=== PATIENT | female | born 1960 | race African-American/Black ===

== ENCOUNTER 2017-04-07 08:51 | Emergency (ER) | payer OTHER ==
[2017-04-07 09:35] VITALS: TEMP 98.7; BMI 33.9
[2017-04-07] MEDS ORDERED: ONDANSETRON 4 MG/2 ML VIAL IVPUSH ONE (10:11)
[2017-04-07] MEDS ORDERED: SODIUM CHLORIDE 0.9% 1000 ML INFUS.BAG IV ONE (10:11)
[2017-04-07] MEDS ORDERED: ONDANSETRON 4 MG/2 ML VIAL ONE (10:24)
[2017-04-07 10:50] LABS: BASO % 1.2 % (0-2.0); EOS % 3.1 % (0-4.5); HEMATOCRIT 45.5 % (32.4-45.2); HEMOGLOBIN 14.8 GM/dL (10.7-15.3); LYMPH % 26.8 % (8-40); MCHC 32.5 g/dl (32.0-36.0); MEAN CELL VOLUME 76.9 fl (80-96); MEAN PLT VOLUME 9.3 fl (7.5-11.1); NEUT % 61.9 % (42.8-82.8); PLATELET COUNT 205 K/MM3 (134-434); RBC 5.91 M/mm3 (3.60-5.2); RDW 15.3 % (11.6-15.6); WHITE BLOOD COUNT 4.7 K/mm3 (4.0-10.0)
--- NOTE | 2017-04-07 10:51 | PDOC ---
Attending Attestation - Resident Resident Name: Addison Hutchison - ED Attending Attestation I have performed the following: I have examined & evaluated the patient, The case was reviewed & discussed with the resident, I agree w/resident's findings & plan, Exceptions are as noted - HPI HPI: 04/07/17 10:30 A portion of this note was documented by scribe services under my direction. I have reviewed the details of the note, within reason, and agree with the documentation with the following case summary and management plan written by me. Patient treated in the ED. Nursing notes are reviewed and incorporated into the medical decision-making. Vital signs reviewed. Peripheral IV access obtained by the nurse, laboratory studies are drawn and sent, reviewed and interpreted by myself. Vital Signs Temp Pulse Resp BP Pulse Ox 98.7 F 83 20 124/105 98 04/07/17 09:22 04/07/17 09:22 04/07/17 09:22 04/07/17 09:22 04/07/17 09:22 57-year-old female with past medical history of hypertension presents with chest pain. The patient reported waking up in her usual state of health. Stated that approximately 6 the morning, the patient was waiting for the bus when she felt the sudden onset of chest and left upper quadrant discomfort. The patient states that the pain would wax and wane and not told exertional. States she may have been short of breath. Reported some nausea but denies vomiting. No radiation. Denies recent illnesses. Patient had taken some Mylanta but didn't think it brought relief. - Physicial Exam PE: 04/07/17 10:51 GENERAL: Awake, alert, and fully oriented, in no acute distress. HEAD: No signs of trauma EYES: PERRLA, EOMI, sclera anicteric, conjunctiva clear ENT: Auricles normal inspection, hearing grossly normal, nares patent, NECK: Normal ROM, supple LUNGS: Breath sounds equal, clear to auscultation bilaterally. No wheezes, and no crackles HEART: Regular rate and rhythm, normal S1 and S2, no murmurs, rubs or gallops ABDOMEN: TTP LUQ. Soft. No guarding, no rebound. No masses EXTREMITIES: Normal range of motion, no edema. No clubbing or cyanosis. No cords, erythema, or tenderness NEUROLOGICAL: Cranial nerves II through XII grossly intact. Normal speech, normal gait SKIN: Warm, Dry, normal turgor, no rashes or lesions noted. - Medical Decision Making 04/07/17 10:51 Patient does have some reproducible component including left upper quadrant discomfort. I suspect this is likely gastritis or atypical chest pain. However, given age and history of hypertension, we'll obtain to troponins. EKG is unremarkable. If workup is unrevealing, and patient reports feeling better, we' ll discharge with PMD follow-up and cardiology follow-up. 04/07/17 12:05 CBC, BMP 04/07/17 10:30 04/07/17 10:30 CMP Sodium 141 mmol/L (136-145) 04/07/17 10:30 Potassium 3.8 mmol/L (3.5-5.1) 04/07/17 10:30 Chloride 109 mmol/L (98-107) H 04/07/17 10:30 Carbon Dioxide 25 mmol/L (21-32) 04/07/17 10:30 Anion Gap 7 (8-16) L 04/07/17 10:30 BUN 10 mg/dL (7-18) 04/07/17 10:30 Creatinine 0.7 mg/dL (0.55-1.02) 04/07/17 10:30 Creat Clearance w eGFR > 60 (>60) 04/07/17 10:30 Random Glucose 98 mg/dL (74-106) 04/07/17 10:30 Calcium 8.4 mg/dL (8.5-10.1) L 04/07/17 10:30 Total Bilirubin 0.3 mg/dL (0.2-1.0) 04/07/17 10:30 AST 21 U/L (15-37) 04/07/17 10:30 ALT 37 U/L (12-78) 04/07/17 10:30 Alkaline Phosphatase 109 U/L (45-117) 04/07/17 10:30 Creatine Kinase 171 IU/L (26-192) 04/07/17 10:30 Creatine Kinase Index 0.9 % (0.0-5.0) 04/07/17 10:30 CK-MB (CK-2) 1.6 ng/mL (0.5-3.6) 04/07/17 10:30 Troponin I < 0.02 ng/ml (0.00-0.05) 04/07/17 10:30 Total Protein 7.7 g/dl (6.4-8.2) 04/07/17 10:30 Albumin 3.6 g/dl (3.4-5.0) 04/07/17 10:30 Lipase 143 U/L (73-393) 04/07/17 10:30 Initial trop is negative. Will await for second trop. If negative, patient can follow up as an outpatient. Case discussed with DR. Addison Trejo, who is seeing the patient and will see the patient as an outpatient. 04/07/17 14:37 2nd trop negative. Chest xray reviewed. No acute findings. Heart Score/ECG Review - History History: Moderately suspicious - Electrocardiogram EKG: Normal - Age Age: 45-65 - Risk Factors Risk Factors Heart Score: Yes Hx Hypertension Based on the list above the patient has:: 1-2 risk factors - Troponin Troponin: </= normal limit - Score Heart Score - Total: 3 #1 04/07/17 10:52 NSR 72, no std/hilton, normal axis, normal intervals, QTC 453 msec
--- NOTE | 2017-04-07 10:59 | PDOC ---
History of Present Illness - General Chief Complaint: Chest Pain Stated Complaint: CHEST PAIN Time Seen by Provider: 04/07/17 09:50 History Source: Patient Exam Limitations: No Limitations - History of Present Illness Initial Comments: 04/07/17 11:08 The patient is a 57F with a PMH of HTN who presents with chest pain. The patient starts that she experienced a retrosternal CP, radiating to her L inferior rib area, which she describes as a burning/pressure pain. The pain started while she was doing her normal walk to her bus. The pain is associated with a cough. She is also complaining of congestion. She states that as she went to work, she felt a bout of nauseousness but no vomiting. She says that after the nauseousness, she felt worried and went to her work's clinic. She was given mylanta and aspirin and says she is not sure if she felt better or not after that. She denies SOB, fever, chills, vomiting, numbness, tingling, weakness, rash, dysuria, hematuria. Past History - Past Medical History Allergies/Adverse Reactions: Allergies Allergy/AdvReac Type Severity Reaction Status Date / Time No Known Drug Allergies Allergy Verified 04/07/17 09:22 Home Medications: Ambulatory Orders Unobtainable [Unobtainable] 04/07/17 COPD: No HTN: Yes - Suicide/Smoking/Psychosocial Hx Smoking History: Former smoker Have you smoked in the past 12 months: No Information on smoking cessation initiated: No Hx Alcohol Use: No Drug/Substance Use Hx: No Substance Use Type: None Hx Substance Use Treatment: No Review of Systems - Review of Systems Able to Perform ROS?: Yes Comments:: 04/07/17 11:24 GENERAL/CONSTITUTIONAL: No fever or chills. No weakness. HEAD, EYES, EARS, NOSE AND THROAT: No change in vision. No ear pain or discharge. No sore throat. CARDIOVASCULAR: Positive for chest pain. No palpitations or lightheadedness. RESPIRATORY: No cough, wheezing, shortness of breath, or hemoptysis. GASTROINTESTINAL: Positive for nausea. No vomiting, diarrhea, constipation, or abdominal pain. GENITOURINARY: No dysuria, frequency, hematuria, or change in urination. MUSCULOSKELETAL: No joint or muscle swelling or pain. No neck or back pain. SKIN: No rash or lesions. NEUROLOGIC: No headache, numbness, tingling, weakness, loss of consciousness, or change in strength/sensation. ENDOCRINE: No increased thirst. No abnormal weight change. HEMATOLOGIC/LYMPHATIC: No anemia, easy bleeding, or history of blood clots. ALLERGIC/IMMUNOLOGIC: No hives or skin allergy. Is the patient limited Tamazight proficient: No *Physical Exam - Vital Signs Last Vital Signs Temp Pulse Resp BP Pulse Ox 98.7 F 83 20 124/105 98 04/07/17 09:22 04/07/17 09:22 04/07/17 09:22 04/07/17 09:22 04/07/17 09:22 - Physical Exam Comments: 04/07/17 11:37 GENERAL: Well developed, well nourished. Awake and alert. No acute distress. HEENT: Normocephalic, atraumatic. Hearing grossly normal. Moist mucous membranes. PERRLA, EOMI. No conjunctival pallor. Sclera are non-icteric. NECK: Supple. Full ROM. No JVD. CARDIOVASCULAR: Regular rate and rhythm. No murmurs, rubs, or gallops. No tenderness to palpation over ribs. PULMONARY: No evidence of respiratory distress. Lungs clear to auscultation bilaterally. No wheezing, rales or rhonchi. ABDOMINAL: Soft. Non-tender. Non-distended. No rebound or guarding. GENITOURINARY: No CVA tenderness bilaterally. MUSCULOSKELETAL: Normal range of motion at all joints. No bony deformities or tenderness. EXTREMITIES: No cyanosis. No clubbing. No edema. No calf tenderness. SKIN: Warm and dry. Normal capillary refill. No rashes. No jaundice. NEUROLOGICAL: Alert, awake, appropriate. Cranial nerves 2-12 intact. Normal speech. Gait is normal without ataxia. PSYCHIATRIC: Cooperative. Good eye contact. Appropriate mood and affect. Heart Score/ECG Review #1 ECG reviewed & interpreted by me at: 11:20 General ECG Interpretation: Sinus Rhythm, Normal Rate, Normal Intervals, No acute ischemic changes Compared to previous ECG there are: Other (P wave inversion in V2) ED Treatment Course - LABORATORY CBC & Chemistry Diagram: 04/07/17 10:30 04/07/17 10:30 - ADDITIONAL ORDERS Additional order review: 04/07/17 10:30 RBC 5.91 H MCV 76.9 L MCHC 32.5 RDW 15.3 MPV 9.3 Neutrophils % 61.9 Lymphocytes % 26.8 Monocytes % 7.0 Eosinophils % 3.1 Basophils % 1.2 - RADIOLOGY Radiology Studies Ordered: Category Date Time Status CHEST PA & LAT [RAD] Stat Radiology 04/07/17 09:51 Ordered - Medications Given in the ED: ED Medications Discontinued Medications Generic Name Dose Route Start Last Admin Trade Name Freq PRN Reason Stop Dose Admin Ondansetron HCl 4 mg 04/07/17 10:11 04/07/17 10:29 Zofran Injection IVPUSH 04/07/17 10:12 4 mg ONCE ONE Administration Sodium Chloride 1,000 ml 04/07/17 10:11 04/07/17 10:29 Normal Saline - IV 04/07/17 10:12 1,000 ml ONCE ONE Administration Medical Decision Making - Medical Decision Making 04/07/17 11:40 The patient is a 57F with a PMH of HTN who is presenting with atypical CP which is pleuritic and positional in nature. I have slight concern for an atypical presentation of ACS, however, I believe the presentation is more likely to be 2/ 2 to a viral illness causing a cough and nausea. This may also be an atypical presentation for a nephrolithiasis. Will order labs/imaging. 04/07/17 11:48 CBC, CMP, and UA WNL. Pending CXR. Pt is comfortably sitting up in bed. 04/07/17 13:55 Preliminary read of CXR is negative. Will give cards f/u. Pending 2nd trop and d/c home. 04/07/17 14:27 CXR official read negative. Pending 2nd trop. 04/07/17 14:43 Repeat trop negative. Pt ready for d/c. *DC/Admit/Observation/Transfer Diagnosis at time of Disposition: Atypical chest pain - Discharge Dispostion Disposition: HOME Condition at time of disposition: Stable Admit: No - Referrals Referrals: Osvaldo Tolbert MD [Primary Care Provider] - Addison Trejo MD [Staff Physician] - - Patient Instructions Printed Discharge Instructions: DI for Atypical Chest Pain Additional Instructions: Please return to the ER if symptoms persist, worsen, or new symptoms arise. Please follow up with your primary care physician in 2-3 days. Please follow up with Dr. Trejo in 2-3 days. Please return to the ER if you have any signs or symptoms of chest pain, shortness of breath, uncontrollable fever, chills, nausea, vomiting, numbness, tingling, or weakness in any part of your body, changes in vision, or slurred speech. Print Language: BULGARIAN - Post Discharge Activity
[2017-04-07 11:04] LABS: ALBUMIN 3.6 g/dl (3.4-5.0); ANION GAP 7 (8-16); BILIRUBIN,TOTAL 0.3 mg/dL (0.2-1.0); BLOOD UREA NITROGEN 10 mg/dL (7-18); CALCIUM 8.4 mg/dL (8.5-10.1); CHLORIDE 109 mmol/L (98-107); CO2 25 mmol/L (21-32); CREATININE 0.7 mg/dL (0.55-1.02); GLUCOSE,RANDOM 98 mg/dL (74-106); POTASSIUM 3.8 mmol/L (3.5-5.1); SGOT/AST 21 U/L (15-37); SGPT/ALT 37 U/L (12-78); SODIUM 141 mmol/L (136-145); TOT PROT 7.7 g/dl (6.4-8.2)
[2017-04-07] MEDS ORDERED: SUCRALFATE 1 GM TABLET (FP) PO ONE (11:04)
[2017-04-07 11:06] LABS: ALK PHOS 109 U/L (45-117)
[2017-04-07] MEDS ORDERED: ACETAMINOPHEN 1000 MG/100 ML VIAL (NON FORMULARY) IVPB ONE (11:07)
[2017-04-07 11:08] LABS: LIPASE 143 U/L (73-393)
[2017-04-07 11:10] LABS: URINE APPEARANCE CLEAR; URINE BILIRUBIN NEGATIVE (NEGATIVE); URINE BLOOD NEGATIVE (NEGATIVE); URINE COLOR LTYELLOW; URINE GLUCOSE (UA) NEGATIVE (NEGATIVE); URINE KETONE NEGATIVE (NEGATIVE); URINE LEUK ESTERASE NEGATIVE (NEGATIVE); URINE NITRITE NEGATIVE (NEGATIVE); URINE PROTEIN NEGATIVE (NEGATIVE); URINE UROBILINOGEN NEGATIVE mg/dL (0.2-1.0)
[2017-04-07] MEDS ORDERED: SUCRALFATE 1 GM TABLET (FP) ONE (11:10)
[2017-04-07] MEDS ORDERED: ACETAMINOPHEN INJECTION 100 ML IVPB ONE (11:10)
[2017-04-07] MEDS ORDERED: FAMOTIDINE 20 MG/50 ML IVPB 20 MG/50 ML MG IVPB ONE ×2 (12:00→12:20)
--- NOTE | 2017-04-07 14:40 | PDOC ---
*Physical Exam - Vital Signs Last Vital Signs Temp Pulse Resp BP Pulse Ox 98.7 F 83 20 124/105 98 04/07/17 09:22 04/07/17 09:22 04/07/17 09:22 04/07/17 09:22 04/07/17 09:22 ED Treatment Course - LABORATORY CBC & Chemistry Diagram: 04/07/17 10:30 04/07/17 10:30 - ADDITIONAL ORDERS Additional order review: Laboratory Results 04/07/17 04/07/17 04/07/17 13:50 11:00 10:30 Sodium 141 Potassium 3.8 Chloride 109 H Carbon Dioxide 25 Anion Gap 7 L BUN 10 Creatinine 0.7 Creat Clearance w eGFR > 60 Random Glucose 98 Calcium 8.4 L Total Bilirubin 0.3 AST 21 ALT 37 Alkaline Phosphatase 109 Creatine Kinase 154 171 Creatine Kinase Index 0.9 CK-MB (CK-2) 1.6 Troponin I < 0.02 < 0.02 Total Protein 7.7 Albumin 3.6 Lipase 143 Urine Color Ltyellow Urine Appearance Clear Urine pH 6.0 Ur Specific [place] 1.009 Urine Protein Negative Urine Glucose (UA) Negative Urine Ketones Negative Urine Blood Negative Urine Nitrite Negative Urine Bilirubin Negative Urine Urobilinogen Negative Ur Leukocyte Esterase Negative 04/07/17 10:30 RBC 5.91 H MCV 76.9 L MCHC 32.5 RDW 15.3 MPV 9.3 Neutrophils % 61.9 Lymphocytes % 26.8 Monocytes % 7.0 Eosinophils % 3.1 Basophils % 1.2 - Medications Given in the ED: ED Medications Discontinued Medications Generic Name Dose Route Start Last Admin Trade Name Balaji PRN Reason Stop Dose Admin Acetaminophen 1,000 mg 04/07/17 11:07 04/07/17 11:15 Ofirmev Injection - IVPB 04/07/17 11:08 1,000 mg ONCE ONE Administration Famotidine/Sodium Chloride 20 mg in 50 mls @ 100 mls/hr 04/07/17 12:00 12:23 Pepcid 20 Mg Premixed Ivpb - IVPB 04/07/17 12:29 100 mls/hr ONCE ONE Administration Ondansetron HCl 4 mg 04/07/17 10:11 04/07/17 10:29 Zofran Injection IVPUSH 04/07/17 10:12 4 mg ONCE ONE Administration Sodium Chloride 1,000 ml 04/07/17 10:11 04/07/17 10:29 Normal Saline - IV 04/07/17 10:12 1,000 ml ONCE ONE Administration Sucralfate 1 gm 04/07/17 11:04 04/07/17 11:15 Carafate - PO 04/07/17 11:05 1 gm ONCE ONE Administration Medical Decision Making - Medical Decision Making 04/07/17 14:39 2nd trop negative. Pt will follow up with Dr. Addison Trejo I discussed the physical exam findings, ancillary test results and final diagnoses with the patient. I answered all of the patient's questions. The patient was satisfied with the care received and felt comfortable with the discharge plan and treatment plan. The patient will call their primary care physician within 24 hours to arrange follow-up and will return to the Emergency Department with any new, persistant or worsening symptoms. *DC/Admit/Observation/Transfer Diagnosis at time of Disposition: Atypical chest pain - Discharge Dispostion Disposition: HOME Condition at time of disposition: Stable - Referrals Referrals: Osvaldo Tolbert MD [Primary Care Provider] - Addison Trejo MD [Staff Physician] - - Patient Instructions Printed Discharge Instructions: DI for Atypical Chest Pain Additional Instructions: Please return to the ER if symptoms persist, worsen, or new symptoms arise. Please follow up with your primary care physician in 2-3 days. Please follow up with Dr. Trejo in 2-3 days. Please return to the ER if you have any signs or symptoms of chest pain, shortness of breath, uncontrollable fever, chills, nausea, vomiting, numbness, tingling, or weakness in any part of your body, changes in vision, or slurred speech. Print Language: BULGARIAN - Post Discharge Activity
[2017-04-07 14:56] VITALS: BP 133/90; PULSE 80
--- NOTE | 2017-04-07 21:45 | EKG ---
Test Reason : Blood Pressure : / mmHG Vent. Rate : 072 BPM Atrial Rate : 072 BPM P-R Int : 156 ms QRS Dur : 086 ms QT Int : 414 ms P-R-T Axes : 065 018 043 degrees QTc Int : 453 ms NORMAL SINUS RHYTHM POSSIBLE LEFT ATRIAL ENLARGEMENT BORDERLINE ECG WHEN COMPARED WITH ECG OF 22-JUL-2006 14:52, T WAVE INVERSION NOW EVIDENT IN ANTERIOR LEADS Confirmed by CHATO COOPER, DORY ([id number]) on 04/07/2017 9:44:35 PM Referred By: Confirmed By:DORY REIS MD
== END 2017-04-07 15:05 | disposition home or self-care (01) ==
LOC: JER 08:51
PROC: 3E033GC Introduction of Other Therapeutic Substance into Peripheral Vein, Percutaneous Approach (ICD-10-PCS; principal; 2017-04-07)
PROC: 3E033NZ Introduction of Analgesics, Hypnotics, Sedatives into Peripheral Vein, Percutaneous Approach (ICD-10-PCS; 2017-04-07)
PROC: 3E033GC Introduction of Other Therapeutic Substance into Peripheral Vein, Percutaneous Approach (ICD-10-PCS; 2017-04-07)
DX: R07.89 Other chest pain (principal)
CPT/HCPCS: 36415; 71046-TC; 80053; 81003; 82550; 82553; 83690; 84484; 85025; 87086; 93005; 93010; 99284-25

== ENCOUNTER 2017-06-13 07:12 | Day surgery (SDC) | payer OTHER ==
[2017-06-12 09:11] VITALS: BMI 33.9
--- NOTE | 2017-06-13 09:23 | HP ---
History & Physical Update - History History: No Change - Physical Physical: No Change - Assessment Assessment: No Change - Plan Plan: No Change
[2017-06-13] MEDS ORDERED: MIDAZOLAM HCL 2 MG/2 ML SINGLE DOSE VIAL ONE ×3 (10:05→10:45)
[2017-06-13] MEDS ORDERED: DESFLURANE GAS 240 ML BOTTLE IH ONE (10:07)
[2017-06-13] MEDS ORDERED: DEXAMETHASONE SOD PHOSPHATE 4 MG/1 ML VIAL ONE (10:27)
[2017-06-13] MEDS ORDERED: ONDANSETRON 4 MG/2 ML VIAL ONE (10:27)
[2017-06-13] MEDS ORDERED: LIDOCAINE HCL 1%, 10 MG/ML (20ML VIAL) ONE ×2 (10:28→10:40)
[2017-06-13] MEDS ORDERED: PROPOFOL 20 ML ONE (10:34)
[2017-06-13] MEDS ORDERED: LIDOCAINE HCL 1%, 10 MG/ML (20ML VIAL) INF ONE (10:35)
[2017-06-13] MEDS ORDERED: ONDANSETRON 4 MG/2 ML VIAL IVPUSH PRN (11:04)
[2017-06-13] MEDS ORDERED: ACETAMINOPHEN 325 MG TABLET (FP) PO PRN (11:04)
[2017-06-13] MEDS ORDERED: oxyCODONE HCL 5 MG TABLET PO PRN (11:04)
[2017-06-13] MEDS ORDERED: LACTATED RINGERS SOLUTION 1,000 ML IV SCH (11:15)
--- NOTE | 2017-06-13 11:17 | OP ---
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 Operation: Excision of 8cm.x 6cm.x5cm , intermuscular soft tissue tumor in left forearm. Findings: Large lobulated soft tissue tumor intermuscular 8cm.x6cm.x5cm. Post-Operative Diagnosis: Other (Large intermuscular soft tissue tumor in left forearm.) Surgeon: Erik Kyle Anesthesiologist/GREASE PACKER: Cole Toscano Anesthesia: MAC Specimens Removed: Soft tissue tumor left forearm. Estimated Blood Loss (mls): 5 Operative Report Dictated: Yes
[2017-06-13 11:29] VITALS: TEMP 98
--- NOTE | 2017-06-13 11:49 | OP ---
DATE OF OPERATION: 06/13/2017 PREOPERATIVE DIAGNOSIS: Soft tissue tumor of left forearm. POSTOPERATIVE DIAGNOSIS: Intramuscular soft tissue tumor in the left forearm 8 cm x 6 cm x 5 cm. OPERATIVE PROCEDURE: Excision of intramuscular 8-cm x 6-cm x 5-cm soft tissue of the left forearm. SURGEON: Raymond Kyle MD ANESTHESIA: Local with monitored intravenous sedation. ANESTHESIOLOGIST: Cole Toscano MD OPERATIVE DESCRIPTION: This 57-year-old woman had an enlarging mass in the upper lateral aspect of the left forearm. The patient was brought in for excision of the lesion. The patient was given intravenous sedation. The left forearm was painted with Betadine and draped. Then 1% lidocaine was injected circumferentially on the lesion. A longitudinal incision about 8 cm was made on the lateral aspect of the left forearm overlying the lesion. The incision was deepened through the skin and subcutaneous tissue. A large polypoid mass was identified, which was carefully dissected and extended between the bundles of the muscles of the forearm and was intramuscular. This was completely excised. Hemostasis was achieved using electrocautery. The mass was excised and sent to Pathology. There was a large 8-cm x 6-cm x 5-cm lobulated soft tissue tumor. Once hemostasis was achieved, the wound was closed in layers. The wound was approximated with interrupted 3-0 silk sutures in a vertical mattress fashion. Estimated blood loss was 5 mL. Sponge count and instrument count was correct. Pressure dressing was applied. The patient tolerated the procedure well and was sent to the recovery room in satisfactory and stable condition. Juan Antonio [id number]
[2017-06-13 13:31] VITALS: BP 135/89; PULSE 62
--- NOTE | 2017-06-16 14:05 | PATH ---
Surgical Pathology Report Patient Name: SYD PRINCE [facility]. Rec. #: [id number] /Age/Gender: 1960 (Age: 57) / F Account: [id number] Location: [facility] SURGICAL Taken: 06/13/2017 Received: 06/13/2017 Reported: 06/16/2017 Physicians: Raymond Kyle M.D. Specimen(s) Received SOFT TISSUE MASS LEFT FOREARM Clinical History Soft tissue mass, left forearm Final Diagnosis SOFT TISSUE, LEFT FOREARM, EXCISION: LIPOMA. Electronically Signed Saeed Segal M.D. Gross Description Received in formalin labeled "soft tissue mass left forearm" is an irregular yellow lobulated fibroadipose tissue measuring 6 x 4 x 2 cm. Sectioning reveals a homogenous surface with focal areas of hemorrhage. Necrosis is not identified. Annual Giving Manager sections are submitted in 3 cassettes. DWAYNE/06/13/2017 manoj/06/13/2017
== END 2017-06-13 13:00 | disposition home or self-care (01) ==
LOC: JASU-SURG 07:12
PROVIDERS: ATTEND Specialist
PROC: 0JBH0ZZ Excision of Left Lower Arm Subcutaneous Tissue and Fascia, Open Approach (ICD-10-PCS; principal; 2017-06-13 09:30)
DX: D48.1 Neoplasm of uncertain behavior of connective and other soft tissue (principal)
CPT/HCPCS: 88304-TC; 94760

== ENCOUNTER 2017-08-20 06:28 | Day surgery (SDC) | payer OTHER ==
[2017-08-19 16:08] VITALS: BMI 35.7
[~2017-08-20 06:28] MED LIST: BUPIVACAINE HCL/PF 0.25% (2.5MG/ML) 10 ML VIAL IJ ONE; LIDOCAINE 1%/EPI 1:100000 (50 ML MULTI DOSE VIAL) INF ONE
[2017-08-20] MEDS ORDERED: LIDOCAINE 1%/EPI 1:100000 (20 ML MULTI DOSE VIAL) ONE (08:51)
[2017-08-20] MEDS ORDERED: BUPIVACAINE HCL/PF 0.25% (2.5MG/ML) 10 ML VIAL ONE (08:51)
[2017-08-20] MEDS ORDERED: oxyCODONE HCL 5 MG TABLET PO PRN (08:52)
[2017-08-20] MEDS ORDERED: ONDANSETRON 4 MG/2 ML VIAL IVPUSH PRN (08:52)
[2017-08-20] MEDS ORDERED: LACTATED RINGERS SOLUTION 1,000 ML IV SCH (09:00)
[2017-08-20] MEDS ORDERED: DEXAMETHASONE SOD PHOSPHATE 4 MG/1 ML VIAL ONE (09:12)
[2017-08-20] MEDS ORDERED: LIDOCAINE HCL/PF 2% SDV 5ML VIAL ONE (09:12)
[2017-08-20] MEDS ORDERED: PROPOFOL 20 ML ONE (09:12)
--- NOTE | 2017-08-20 09:25 | HP ---
Satellite [facility] - Chief Complaint Chief Complaint: right knee pain - Past Medical History Allergies/Adverse Reactions: Allergies Allergy/AdvReac Type Severity Reaction Status Date / Time No Known Drug Allergies Allergy Verified 08/20/17 07:21 - Current Medications Current Medications: Home Medications Medication Instructions Recorded Amlodipine Besylate/Benazepril 1 tab PO DAILY 06/12/17 [Lotrel 5-40 mg Capsule] Multivitamin/Iron/Folic Acid 1 tab PO DAILY 06/12/17 [Centrum Women Tablet] Acetaminophen [Tylenol] 500 mg PO PRN PRN 08/19/17 Naproxen 500 mg PO PRN PRN 08/19/17 Satellite Physical Exam - Physical Examination Vital Signs: Vital Signs Period Temp Pulse Resp BP Sys/Benson Pulse Ox Last 24 Hr 98.4 F-98.4 F 64-64 20-20 121-121/75-75 99 General Appearance: Well Nourished, Well Developed, Alert & Oriented x3 ENT: Clear Lung: Normal air movement Heart: Regular rate & rhythm Extremities: Other (right knee- + swelling, + ttp, decr rom, + mcmurrays, nvi MRi + mt) Neurological: Intact, Alert, Oriented Satellite Impression/Plan - Impression/Plan Impression: right knee internal derangement Operative Procedure: right knee arthroscopy Date to be Performed: 08/20/17
[2017-08-20] MEDS ORDERED: LIDOCAINE 1%/EPI 1:100000 (50 ML MULTI DOSE VIAL) INF ONE (09:26)
[2017-08-20] MEDS ORDERED: BUPIVACAINE HCL/PF 0.25% (2.5MG/ML) 10 ML VIAL IJ ONE (09:26)
--- NOTE | 2017-08-20 09:44 | OP ---
Operative Note - Note: Operative Date: 08/20/17 ([facility]) Pre-Operative Diagnosis: right knee internal derangement Operation: right knee arthroscopy with PMM, PLM, debridement chondroplasty trochlea Post-Operative Diagnosis: Same as Pre-op Surgeon: Alfa Orellana Anesthesia: General, Local Specimens Removed: shavings Estimated Blood Loss (mls): 5 Operative Report Dictated: Yes
[2017-08-20 10:57] VITALS: TEMP 98
--- NOTE | 2017-08-20 12:43 | OP ---
DATE OF OPERATION: 08/20/2017 PREOPERATIVE DIAGNOSIS: Internal derangement, right knee. POSTOPERATIVE DIAGNOSIS: Internal derangement, right knee. PROCEDURE: Arthroscopy, right knee, with partial medial and lateral meniscectomies and chondroplasty of the trochlea. SURGICAL ATTENDING: Alfa Orellana MD ANESTHESIA: General with LMA. CLOSURE: 4-0 nylon COMPLICATIONS: None. CONDITION: To recovery in stable condition. DESCRIPTION OF PROCEDURE: Patient taken to the operating room on August 20, 2017. General anesthesia with LMA was administered by anesthesiologist. The medial and lateral infrapatellar portal sites were infiltrated with 1% Xylocaine with epinephrine, and both portals were then made with a 15-blade for blunt trocar. The scope was placed in the lateral infrapatellar portal and up into the suprapatellar pouch. The knee was then inflated with a cocktail of 10 mL 1% Xylocaine, 10 mL 0.5% Marcaine, and 20 mL of arthroscopic saline. After allowing the anesthetic to work inside the knee, the procedure was performed. The medial and lateral gutters were visualized to be clear. The undersurface of the trochlea was intact. The trochlea had some grade 2 changes. Any loose articular cartilage was debrided using the shaver. With valgus stress on the knee, the medial compartment was entered. Medial meniscus had flap tear of its midportion. This was debrided back to stable meniscal tissues using meniscal biter and arthroscopic shaver. Medial femoral condyle was run and found to be intact, as well as the medial tibial plateau. At 90 degrees the ACL was probed and found to be intact. In the figure of 4 position, the lateral compartment was entered. Lateral meniscus also had a flap tear of its posterior horn. This was debrided back to smooth, stable meniscal tissue using meniscal biter and arthroscopic shaver. Lateral femoral condyle was run and found to be intact, as well as lateral tibial plateau. The knee was irrigated with copious amounts of irrigation. Portals were closed with 4-0 nylon. Prior to closure, 20 mL of 0.5% Marcaine was infused into the knee for postoperative analgesia. Sterile pressure dressing was placed over the knee, patient awakened from anesthesia and transferred to recovery room in stable condition with no complications. ESTIMATED BLOOD LOSS: Negligible. Juan Antonio [id number]
[2017-08-20 12:55] VITALS: BP 150/83; PULSE 65
--- NOTE | 2017-08-21 16:32 | PATH ---
Surgical Pathology Report Patient Name: SYD PRINCE [facility]. Rec. #: [id number] /Age/Gender: 1960 (Age: 57) / F Account: [id number] Location: [facility] SURGICAL Taken: 08/20/2017 Received: 08/20/2017 Reported: 08/21/2017 Physicians: Alfa Orellana M.D. Specimen(s) Received RIGHT KNEE SHAVINGS Clinical History Internal derangement right knee Final Diagnosis RIGHT KNEE, SHAVINGS: SYNOVIAL TISSUE, BONE, AND FIBROCARTILAGINOUS TISSUE WITH DEGENERATIVE CHANGE. Electronically Signed Rico Horner M.D. Gross Description Received in formalin, labeled "right knee shavings" is a 4 x 2 x 1 cm. aggregate of coppola-yellow soft tissue fragments. A retail customer service representative portion is submitted in one cassette. DWAYNE/08/20/2017 manoj/08/20/2017
== END 2017-08-20 12:56 | disposition home or self-care (01) ==
LOC: JASU-SURG 06:28
PROVIDERS: ATTEND Orthopaedic Surgery
PROC: 0SBC4ZZ Excision of Right Knee Joint, Percutaneous Endoscopic Approach (ICD-10-PCS; 2017-08-20)
PROC: 0SBC4ZZ Excision of Right Knee Joint, Percutaneous Endoscopic Approach (ICD-10-PCS; principal; 2017-08-20 08:45)
DX: M23.91 Unspecified internal derangement of right knee (principal)
CPT/HCPCS: 88304-TC; 94760; 97116-GP

== ENCOUNTER 2019-04-20 07:29 | Day surgery (SDC) | payer OTHER ==
[~2019-04-20 07:29] MED LIST changes: -BUPIVACAINE HCL/PF 0.25% (2.5MG/ML) 10 ML VIAL IJ ONE; +CEFAZOLIN 2 GM in DEXTROSE 5%-WATER - 50 ML IVPB ONE; +CELECOXIB 200 MG CAPSULE PO ONE; -LIDOCAINE 1%/EPI 1:100000 (50 ML MULTI DOSE VIAL) INF ONE; +THROMBIN (RECOMBINANT) 5,000 UNIT VIAL TP ONE; +TRANEXAMIC ACID 1000 MG/10 ML VIAL IVPUSH ONE; +ceFAZolin SODIUM 1 GM VIAL ONE
[2019-04-20] MEDS ORDERED: ROPIVACAINE HCL 0.5% 30ML VIAL ONE (07:59)
[2019-04-20] MEDS ORDERED: MIDAZOLAM HCL 2 MG/2 ML SINGLE DOSE VIAL ONE ×3 (07:59→09:57)
--- NOTE | 2019-04-20 08:01 | HP ---
Satellite [facility] - Chief Complaint Chief Complaint: left knee pain - Past Medical History Allergies/Adverse Reactions: Allergies Allergy/AdvReac Type Severity Reaction Status Date / Time No Known Drug Allergies Allergy Verified 08/20/17 07:21 - Current Medications Current Medications: Home Medications Medication Instructions Recorded Amlodipine Besylate/Benazepril 1 tab PO DAILY 06/12/17 [Lotrel 5-40 mg Capsule] Multivitamin/Iron/Folic Acid 1 tab PO DAILY 06/12/17 [Centrum Women Tablet] Acetaminophen [Tylenol] 500 mg PO PRN PRN 08/19/17 Naproxen 500 mg PO PRN PRN 08/19/17 Acetaminophen with Codeine 1 each PO Q6H #20 tablet MDD 4 08/20/17 [Tylenol with Codeine #3 Tablet] Satellite Physical Exam - Physical Examination General Appearance: Well Nourished, Well Developed, Alert & Oriented x3 ENT: Clear Lung: Normal air movement Extremities: Other (left knee- + swelling, + ttp medially, decr rom, nvi, xrays show grade 4 medial djd) Neurological: Intact, Alert, Oriented Satellite Impression/Plan - Impression/Plan Impression: left knee medial djd Operative Procedure: left medial claire ukr Date to be Performed: 04/20/19
[2019-04-20 08:23] VITALS: BMI 38.0
[2019-04-20] MEDS ORDERED: KETOROLAC TROMETHAMINE 30 MG/1 ML VIAL ONE (08:46)
[2019-04-20] MEDS ORDERED: DEXAMETHASONE SOD PHOSPHATE 4 MG/1 ML VIAL ONE (08:46)
[2019-04-20] MEDS ORDERED: ceFAZolin SODIUM 1 GM VIAL ONE (08:46)
[2019-04-20] MEDS ORDERED: ONDANSETRON 4 MG/2 ML VIAL ONE (08:46)
[2019-04-20] MEDS ORDERED: PROPOFOL 20 ML ONE ×3 (08:47)
[2019-04-20] MEDS ORDERED: BUPIVICAINE 0.25%/MORPH PF/KETOROLAC - 51ML DISP.SYRINGE IA ONE ×2 (09:30→10:42)
[2019-04-20] MEDS ORDERED: MAG HYDROX/AL HYDROX/SIMETH 30 ML UNIT-DOSE CUP PO PRN (09:53)
[2019-04-20] MEDS ORDERED: ONDANSETRON 4 MG/2 ML VIAL IVPUSH PRN (09:53)
[2019-04-20] MEDS ORDERED: PATIENT'S OWN MEDICATION (NON-FORMULARY) (Amlodipine Besylate/Benazepril [Lotrel 5-40 Mg C PO SCH (10:00)
[2019-04-20] MEDS ORDERED: LACTATED RINGERS SOLUTION 1,000 ML IV SCH (10:00)
[2019-04-20] MEDS ORDERED: PANTOPRAZOLE 40 MG TABLET PO SCH (10:00)
[2019-04-20] MEDS ORDERED: PATIENT'S OWN MEDICATION (NON-FORMULARY) (Multivitamin/Iron/Folic Acid [Centrum Women Tabl PO SCH (10:00)
[2019-04-20] MEDS ORDERED: MULTIVITAMINS (DAILY MVI) TABLET (FP) PO SCH (10:00)
--- NOTE | 2019-04-20 11:32 | OP ---
Operative Note - Note: Operative Date: 04/20/19 ([place]) Pre-Operative Diagnosis: left knee medial djd Operation: left medial claire ukr Post-Operative Diagnosis: Same as Pre-op Surgeon: Alfa Orellana Utility Arborist: Oleg Horton Anesthesia: Spinal, Local Specimens Removed: bone fragments Estimated Blood Loss (mls): 100
[2019-04-20] MEDS ORDERED: oxyCODONE HCL 5 MG TABLET PO PRN (12:19)
[2019-04-20] MEDS ORDERED: traMADol HCL 50 MG TABLET PO PRN (12:19)
[2019-04-20] MEDS: ACETAMINOPHEN 325 MG TABLET (FP) PO SCH ×2 (12:32→23:43)
--- NOTE | 2019-04-20 13:44 | SPEC ---
DATE OF OPERATION: 04/20/2019 PREOPERATIVE DIAGNOSIS: Degenerative joint disease, left knee. POSTOPERATIVE DIAGNOSIS: Degenerative joint disease, left knee. PROCEDURE: Left medial unicompartmental knee replacement with robotic-assisted navigation (MAKOplasty). SURGICAL ATTENDING: Alfa Orellana MD INTERNET MARKETING INTERN: KAYLIE Busch ANESTHESIA: Regional and spinal. CLOSURE: Medial AMANDA component with a 4 femur, 4 tibia, and 9 polyethylene; No. 1 Vicryl, fascia; 0 and 2-0, subcutaneous; 3-0 Monocryl subcuticular with skin glue for skin; 4-0 undyed Vicryl for pin sites. ESTIMATED BLOOD LOSS: Negligible. COMPLICATIONS: None. CONDITION: To recovery in stable condition. DESCRIPTION OF OPERATIVE PROCEDURE: Patient was taken to the operating room on April 20, 2019. Spinal and regional anesthesia was administered by the anesthesiologist. IV Kefzol and TXA were administered prophylactically prior to the case. A well-padded pneumatic tourniquet was placed on the left proximal thigh. The left lower extremity was prepped and draped in the usual sterile fashion. A 6- to 8-cm longitudinal incision over the medial side of the patella from mid patella to the tibial tubercle was incised and was deepened using Bovie cautery. An arthrotomy was then made just medial to the patellar tendon and the patella. Subperiosteal dissection was done on the anteromedial proximal tibia all the way back to the MCL. Partial fat pad excision was performed, exposing the medial compartment. Checkpoint was malleable at both the femur and the tibia. Using 2 stab incisions in the femur 1 handbreadth above the patella on the femur and 2 stab incisions 1 handbreadth below the tibial tubercle on the tibia, 2 threaded pins were drilled in parallel fashion from anterior to posterior, going through the proximal cortex and engaging the 2nd but not through the 2nd cortex. To these threaded pins were fastened navigation rays, 1 on the femur and 1 on the tibia. The knee was then registered with the navigation device with the center of the rotation of the hip, medial and lateral malleoli, and multiple points both on the femur and on the tibia. Excellent registration of less than 0.5 mm was obtained on both to ensure adequate registration. The navigation device ensured us to "pop the bubbles" both on the femur and the tibia and that was performed and passed registration. The knee was then thoroughly inspected to remove all osteophytes both on the femur and the tibia. Also, osteophytes on the trochlea and on the surface of the patella were removed as well. The knee was then stressed with valgus stress at 0, 30, 60, 90, and 120 degrees of flexion. This propagated a looseness/tightness graft. The virtual positions of the components were then optimized to ensure an excellent graft. The tracking also was optimized by manipulating the virtual position to ensure that the femoral component articulated with the central portion of the tibial component. The robot was then brought into the field and was registered. The robot was used to bur the bone on both the femur and the tibia as to the specifications of the components. The trial components were then applied on both the femur and the tibia with an appropriate polyethylene insert. The knee was taken through a range of motion and found to have full extension, full flexion, with excellent stability. Stressing the graft revealed an excellent looseness/tightness graft with the trial components in place. The trial components were removed. The knee was thoroughly irrigated with a copious amount of antibiotic irrigation. The real components were then cemented in using modern generation cement techniques with antibiotic cement and pressurization. After the cement was hardened, the knee was thoroughly inspected to remove out all excess cement. The real polyethylene insert was then clipped into place. Range of motion and stability were again assessed to be as they were with the trials. At this time, the pins and the checkpoints were removed. The knee was again thoroughly irrigated. The arthrotomy was closed with No. 1 Vicryl, 0 and 2-0 subcutaneous, and 3-0 Monocryl subcuticular with skin glue for the skin, 4-0 undyed Vicryl for the pin sites. Sterile pressure dressing was placed over the knee. Patient awakened from anesthesia and transferred to recovery in stable condition. No complications. Estimated blood loss negligible. X-rays postoperatively revealed excellent position of the components. Juan Antonio [id number]
[2019-04-20] MEDS ORDERED: MINERAL OIL 25 ML OIL ONE (14:32)
[2019-04-20] MEDS: CEFAZOLIN 2 GM/D5W 2 GM/50 ML ML IVPB SCH (18:30)
[2019-04-20] MEDS: SENNOSIDES/DOCUSATE COMBO (SENNA PLUS) TABLET (UD) PO SCH (21:26)
[2019-04-20] MEDS: oxyCODONE HCL 5 MG TABLET PO PRN (22:15)
[2019-04-21] MEDS: CEFAZOLIN 2 GM/D5W 2 GM/50 ML ML IVPB SCH (01:07)
[2019-04-21] MEDS: oxyCODONE HCL 5 MG TABLET PO PRN ×3 (03:47→11:48)
[2019-04-21 06:29] VITALS: BP 122/69; PULSE 60; TEMP 98
[2019-04-21] MEDS: ACETAMINOPHEN 325 MG TABLET (FP) PO SCH ×2 (06:48→11:48)
[2019-04-21] MEDS ORDERED: ASPIRIN 325 MG TABLET PO SCH (08:00)
--- NOTE | 2019-04-21 09:16 | PN ---
Progress Note (short form) - Note Progress Note: Ortho Pt seen and examined s/p left medial claire ukr pod #1 Selected Entries 04/21/19 06:00 Temperature 98.0 F Pulse Rate 60 Respiratory 19 Rate Blood Pressure 122/69 dressing c/d/i, calf soft, nt rom 0-50, nvi a/p PT dvt ppx pain control d/c home today f/u in 1 week
--- NOTE | 2019-04-21 09:17 | DS ---
Physical Examination Vital Signs: Vital Signs Temperature 98.0 F 04/21/19 06:00 Pulse Rate 60 04/21/19 06:00 Respiratory Rate 19 04/21/19 06:00 Blood Pressure 122/69 04/21/19 06:00 O2 Sat by Pulse Oximetry (%) 95 04/21/19 06:27 Discharge Summary Problems reviewed: Yes Reason For Visit: OSTEOARTHRITIS Procedures: Principal: left medial claire ukr Hospital Course: admitted for elective left medial claire ukr, post-op per protocol, stable for d/c Condition: Good - Instructions Diet, Activity, Other Instructions: Post-op Instructions-Partial Knee Replacement Call the office for a follow-up appointment in 1 week - [phone] Aspirin 325mg daily for 6 weeks. Pain medication was sent into your pharmacy. Apply Graduated Compression Stockings (TEDs) to both lower extremities- remove daily for hygiene ONLY Apply Sequential Compression Device (SCDs) to both Lower extremities remove for PT and hygiene ONLY Apply cold packs to affected area for 15 minutes every 2 hours. Physical Therapist will come to your home for the first 5 days. You will be set up with outpatient PT at your first post-operative visit. Patient may ambulate as tolerated-encourage self care (at least every 2-3 hours while awake) with walker or cane Maintain Aquacel (waterproof) dressing to operative wound (will be removed by surgeon at first office visit) Shower with Aquacel dressing in place-if Aquacel integrity compromised, remove and apply dry sterile dressing and notify Orthopedist. DO NOT SHOWER unless Orthopedists approves without Aquacel dressing CONTACT THE OFFICE FOR ANY CHANGE IN YOUR CONDITION (for example-fever greater than 102 degrees, excessive bleeding from operative site, purulent drainage, severe swelling or pain) GO TO THE EMERGENCY ROOM IF THERE IS A MEDICAL EMERGENCY Knee Precautions: * Keep a rolled towel under affected heel while in bed or chair (to keep knee in extension) * Keep affected leg elevated except during mealtimes * DO NOT PLACE PILLOW UNDER AFFECTED KNEE * If you have any questions, please do not hesitate to call the office - . Referrals: Alfa Orellana MD [Staff Physician] - Disposition: VNS/HOME HEALTH CARE - Home Medications Comprehensive Discharge Medication List: Ambulatory Orders Amlodipine Besylate/Benazepril [Lotrel 5-40 mg Capsule] 1 tab PO DAILY 06/12/17 Multivitamin/Iron/Folic Acid [Centrum Women Tablet] 1 tab PO DAILY 06/12/17 Acetaminophen [Tylenol] 500 mg PO PRN PRN 08/19/17 Naproxen 500 mg PO PRN PRN 08/19/17 Aspirin [ASA -] 325 mg PO DAILY@0800 tablet 04/20/19 Oxycodone HCl/Acetaminophen [Percocet 5-325 mg Tablet -] 1 - 2 tab PO Q6H #50 tab MDD 8 04/20/19
[2019-04-21] MEDS ORDERED: LISINOPRIL 20 MG TABLET (FP) PO SCH (10:00)
[2019-04-21] MEDS ORDERED: amLODIPine BESYLATE 5 MG TABLET (FP) PO SCH (10:00)
[2019-04-21] MEDS: SENNOSIDES/DOCUSATE COMBO (SENNA PLUS) TABLET (UD) PO SCH (10:01)
== END 2019-04-21 12:30 | disposition home health service (06) ==
LOC: FASUSAT 07:29 → FM/S 07:29 → FASU 07:29 → FASUSAT 04-21 12:30
PROVIDERS: ATTEND Orthopaedic Surgery
PROC: 8E0YXBZ Computer Assisted Procedure of Lower Extremity (ICD-10-PCS; 2019-04-20)
PROC: 8E0Y0CZ Robotic Assisted Procedure of Lower Extremity, Open Approach (ICD-10-PCS; 2019-04-20)
PROC: 0SRD0L9 Replacement of Left Knee Joint with Medial Unicondylar Synthetic Substitute, Cemented, Open Approach (ICD-10-PCS; principal; 2019-04-20 09:30)
DX: M17.12 Unilateral primary osteoarthritis, left knee (principal)
CPT/HCPCS: 20985; 27446; C1776; S2900; 73560-TC-LT-FY; 87081; 94760; 97116-GP; 97163-GP

== ENCOUNTER → 2024-08-17 | Day surgery (SDC) | payer OTHER | END | disposition home or self-care (01) | LOC: FMAMMOTONE 13:00 | PROVIDERS: ATTEND Internal Medicine | PROC: 0HBU3ZX Excision of Left Breast, Percutaneous Approach, Diagnostic (ICD-10-PCS; principal; 2024-08-17) | DX: N62 Hypertrophy of breast (principal); N63.20 Unspecified lump in the left breast, unspecified quadrant | CPT/HCPCS: 19081; 77065-TC; 88305-TC; A4648; G0279-TC ==